=== PATIENT | male | born 1995 | race Two or more races ===

== ENCOUNTER 2023-04-30 23:43 | Emergency (ER) | payer MEDICAID, SELFPAY ==
[2023-05-01 00:01] VITALS: BP 135/87; PULSE 98; RESP 20; TEMP 36.9; O2SAT 99; BMI 20.7
--- NOTE | 2023-05-01 01:20 | ECG_ITS ---
Test Reason : DRUG USE Blood Pressure : / mmHG Vent. Rate : 061 BPM Atrial Rate : 061 BPM P-R Int : 122 ms QRS Dur : 096 ms QT Int : 440 ms P-R-T Axes : 059 067 049 degrees QTc Int : 442 ms Normal sinus rhythm Normal ECG No previous ECGs available Referred By: Generic ED Physician Electronically Signed By:SANCHO WHITTINGTON
--- NOTE | 2023-05-01 01:47 | PC.NURSE ---
Pt aox4. Calm and cooperative. Requesting detox. Reports using IVD prior to arrival including heroin and coke. VSS. Pending physician eval. Call del cid placed within reach.
--- NOTE | 2023-05-01 02:52 | ED.GENADULT ---
HPI - General Adult General Chief complaint: General Medical Stated complaint: seeking detox Time Seen by Provider: 05/01/23 02:52 Source: patient Mode of arrival: ambulatory Limitations: no limitations History of Present Illness HPI narrative: Patient comes to the emergency room requesting detox information for heroin. Also, patient concerned that the med be some redness extending from the left antecubital fossa to the bicipital area. Patient denies SI or HI Related Data Previous Rx's Medication Instructions Recorded cephalexin 500 mg capsule 500 mg PO BID #14 caps 05/01/23 doxycycline hyclate 100 mg capsule 100 mg PO BID #14 caps 05/01/23 Allergies Allergy/AdvReac Type Severity Reaction Status Date / Time No Known Allergies Allergy Verified 05/01/23 02:57 Review of Systems Review of Systems: Constitutional : No Weight loss, No Fever, No Chills, No Night Sweats, No Fatigue, No Malaise ENT/Mouth : No Hearing loss, No Ear Pain, No Nasal Congestion, No Sinus Pain, No Hoarseness, No sore throat, No Rhinorrhea, No Swallowing Difficulty Eyes: No Eye Pain, No Swelling, No Redness, No Foreign Body, No Discharge, No Vision Changes Cardiovascular : No Chest Pain, No SOB, No Dyspnea on Exertion, No Orthopnea, No Edema, No Palpitations Respiratory : No Cough, No Sputum, No Wheezing, No Smoke Exposure, No Dyspnea Gastrointestinal : No Nausea, No Vomiting, No Diarrhea, No Constipation, No abdominal Pain, No Hematochezia, No Melena Genitourinary : no irregular bleeding, No Dysuria, No Urinary Frequency, No Hematuria, No Urinary Incontinence, No Urgency, No Flank Pain, No Urinary Flow Changes, No Hesitancy Musculoskeletal : No joint pain, No Myalgias, No Joint Swelling Skin : Complaining of redness in the left antecubital fossa Neuro : No Weakness, No Numbness, No Paresthesias, No Loss of Consciousness, No Dizziness, No Headache Psych : No Anxiety/Panic, No Depression, No SI/HI/AH/VH, seeking detox information for heroin Heme/Lymph: No Bruising, No Bleeding,No Lymphadenopathy Endocrine : No Polyuria, No Polydipsia, No Temperature Intolerance PMF Past Medical History Medical History (Updated 05/01/23 @ 02:57 by Deysi Hutchison MD) Polysubstance abuse Social History Social History Smoked in Last 30 Days: Yes Use of substances other than those prescribed or required for medical reasons: Yes Substance Use Type: Crack/Cocaine Substance Use Frequency: Chronic Longstanding Last Used Substance: Just Prior to Admission Any prior treatment program specific to substance use: Yes Advance Directives: No Advance Directives Information Provided: Yes Physical Exam ED Vital Signs: Vital Signs - 24 hr 05/01/23 00:01 Temperature 98.4 F Pulse Rate 98 Respiratory Rate 20 Blood Pressure 135/87 Pulse Oximetry 99 Oxygen Delivery Method Room Air BMI result Body Mass Index 20.7 Const Other: Appearance: Alert. Oriented X3. No acute distress. Eyes: Pupils equal, round and reactive to light. ENT: Pharynx normal. Neck: Normal inspection. Neck supple. No lymph nodes noted. No crepitus CVS: Normal heart rate and rhythm. Pulses normal. Normal S1 and S2 Respiratory: No respiratory distress. Breath sounds normal. No Wheezing. No rales Abdomen: Soft and nontender. No rigidity. No distention. Skin: Patient has mild erythema from the left antecubital fossa to the beginning of the biceps on the left. Patient is able to flex and extend the elbow without significant pain, no redness over the elbow Extremities: No lower extremity edema. No Lacerations. No Rash Neuro: Oriented X 3. No motor deficit. No sensory deficit. Moving all extremities. No slurred speech. CN 2 through 12 grossly intact Psych: calm, cooperative, normal affect Medical Decision Making Medical Decision Making MDM Narrative: -I discussed with the patient he has mild cellulitis, patient given Keflex and doxycycline. Patient does not have an abscess -patient was given information for addiction medicine and resources Differential Diagnosis Differential Diagnoses: The differential diagnosis associated with the presentation includes (Alcohol abuse, spice absence abuse, cellulitis) Discharge Plan Discharge Clinical Impression: Polysubstance abuse, Cellulitis Patient Disposition: Home, Self-Care Instructions: Cellulitis (ED), Polysubstance Abuse (ED) Additional Instructions: Please follow-up with your primary care physician tomorrow. If you have any worsening or new symptoms, please return to the emergency room or call 911 Prescriptions: New cephalexin 500 mg capsule 500 mg PO BID Qty: 14 0RF doxycycline hyclate 100 mg capsule 100 mg PO BID Qty: 14 0RF
[2023-05-01 03:01] VITALS: BP 129/54; PULSE 67; RESP 14; TEMP 36.6; O2SAT 96
[2023-05-01] MEDS: cephALEXin 500 MG CAPSULE PO (03:12)
[2023-05-01] MEDS: Doxycycline Monohydrate 100 MG CAPSULE PO (03:12)
== END 2023-05-01 03:15 | disposition home or self-care (01) ==
PROVIDERS: Emergency Provider Emergency Medicine
DX: L03.114 Cellulitis of left upper limb (principal); F11.10 Opioid abuse, uncomplicated; F14.10 Cocaine abuse, uncomplicated; Z71.51 Drug abuse counseling and surveillance of drug abuser
CPT/HCPCS: 93005; 99283; 99284

== ENCOUNTER → 2023-05-01 01:20 | Outpatient (BNV) | payer SELFPAY | PROVIDERS: Emergency Provider Emergency Medicine; Visit Provider Internal Medicine | DX: R41.82 Altered mental status, unspecified (principal) | CPT/HCPCS: 93010 ==